=== PATIENT | female | born 1975 | race Caucasian/White ===

== ENCOUNTER 2020-10-27 09:18 | Outpatient (RCR) | payer BC ==
[2020-10-27 09:32] LABS: BASOPHILS % (AUTO) 1 % (0-10); EOSINOPHILS # (AUTO) 0.2 10^3/uL (0.0-0.3); EOSINOPHILS % (AUTO) 3 % (0-10); HEMATOCRIT 39 % (35-52); HEMOGLOBIN 13.1 g/dL (11.5-16.0); LYMPHOCYTES # (AUTO) 2.3 10^3/uL (1.0-4.0); LYMPHOCYTES % (AUTO) 36 % (12-44); MEAN CORPUSCULAR HEMOGLOBIN 33 pg (25-34); MEAN CORPUSCULAR HGB CONC 34 g/dL (32-36); MEAN CORPUSCULAR VOLUME 97 fL (80-99); MEAN PLATELET VOLUME 9.4 fL (9.0-12.2); MONOCYTES # (AUTO) 0.4 10^3/uL (0.0-1.0); MONOCYTES % (AUTO) 6 % (0-12); NEUTROPHILS # (AUTO) 3.5 10^3/uL (1.8-7.8); NEUTROPHILS % (AUTO) 55 % (42-75); PLATELET COUNT 279 10^3/uL (130-400); WHITE BLOOD COUNT 6.4 10^3/uL (4.3-11.0)
[2020-10-27 10:07] LABS: ALBUMIN 3.9 GM/DL (3.2-4.5); BILIRUBIN,TOTAL 0.5 MG/DL (0.1-1.0); CALCIUM 8.8 MG/DL (8.5-10.1); CREATININE SERUM 0.93 MG/DL (0.60-1.30); POTASSIUM 4.1 MMOL/L (3.6-5.0); TOTAL PROTEIN 6.6 GM/DL (6.4-8.2)
--- NOTE | 2020-11-23 12:24 | Holter Monitor ---
HOLTER MONITOR DATE OF PROCEDURE: 10/27/2020-11/10/2020. INDICATION: Premature ventricular complexes. PROCEDURE: A 14-day Holter monitor was obtained for a total of 14 days. The study quality is adequate. RESULTS: 1. Baseline sinus rhythm with an average heart rate of 73 bpm, ranging from 45- 149 bpm. 2. There were rare (27), isolated premature supraventricular complexes. 3. There were rare (1), isolated premature ventricular complexes. 4. There were no pauses exceeding 2 seconds in duration. 5. There was 1 patient event that correlated to sinus rhythm at a heart rate of 85 bpm with no arrhythmias. IMPRESSION: 1. This is a 14-day extended Holter monitor report. 2. Baseline sinus rhythm with an average heart rate of 73 bpm, ranging from 45- 149 bpm with rare, isolated premature supraventricular and premature ventricular complexes. 3. There was 1 patient event that correlated to sinus rhythm at a heart rate of 85 bpm with no arrhythmias. Certain portions of this document may have been dictated utilizing voice recognition technology. Inherent to this technology, typographical and grammatical errors may exist. As much as I am diligent to identify and correct these mistakes, some errors may remain in the document. ELIANA KRISHNAN JR, MD Nov 23, 2020 12:24
== END 2021-01-25 | disposition home or self-care (01) ==
LOC: CARD 09:18
PROVIDERS: ATTEND Internal Medicine Cardiovascular Disease
DX: I49.3 Ventricular premature depolarization (principal); I07.1 Rheumatic tricuspid insufficiency; R94.31 Abnormal electrocardiogram [ECG] [EKG]
CPT/HCPCS: 36415; 80053; 80061; 83036; 84443; 85025; 93246; 93306

== ENCOUNTER → 2022-06-02 | Outpatient (CLI) | payer BC ==
--- NOTE | 2022-06-02 10:51 | Diagnostic Imaging Report ---
PROCEDURE: US Thyroid. TECHNIQUE: Multiple real-time grayscale images were obtained of the thyroid in various projections. INDICATION: Thyroid fullness, mass. COMPARISON: None available. FINDINGS: Right thyroid lobe: The right thyroid lobe measures 4.9 x 1.1 x 1.7 cm. There are two benign colloid cysts within the left thyroid lobe measuring up to 6 mm (TI-RADS 1). Isthmus: The thyroid isthmus measures 0.2 cm and is without nodule. Left thyroid lobe: The left thyroid lobe measures 4.7 x 1.4 x 2.0 cm. A mixed solid and cystic nodule in the upper pole of the left thyroid has circumscribed margins, no echogenic foci and is wider than tall measuring 1.7 x 1.2 x 1.5 cm (TI-RADS 2). IMPRESSION: 1. No suspicious thyroid nodules that would require FNA or dedicated surveillance imaging. 2. Thyroid is normal in size. ACR TI-RADS: TR2. TI-RADS Recommendations:TR2 - Not Suspicious. No FNA. Dictated by: Dictated on workstation # [id number]
--- NOTE | 2022-06-02 19:29 | Diagnostic Imaging Report ---
INDICATION: Screening. EXAMINATION: 3D bilateral screening mammogram with CAD. The current study was also evaluated with a Computer Aided Detection (CAD) system. COMPARISON: This study was compared to the prior exam of 07/28/2014. At this time there are no current complaints. FINDINGS: The fibroglandular tissue in both breasts is heterogeneously dense. This does limit the sensitivity of this exam. When compared to the previous study there does not appear to have been any significant change. There is no primary or secondary sign of malignancy noted. IMPRESSION: 1. There is no evidence of malignancy. 2. Patient should have her annual bilateral screening mammogram on schedule in May 2023. ACR BI-RADS Category 1: Negative. Result letter will be mailed to the patient. Note: At least 10% of breast cancer is not imaged by mammography. Dictated by: Dictated on workstation # [id number]
== END ==
LOC: RAD 08:00
PROVIDERS: ATTEND Family Medicine
DX: Z12.31 Encounter for screening mammogram for malignant neoplasm of breast (principal)
CPT/HCPCS: 76536; 77063; 77067